=== PATIENT | female | born 1995 | race Caucasian/White ===

== ENCOUNTER 2023-11-05 15:51 | Emergency (ER) | payer MEDICAID ==
[~2023-11-05] VITALS: Ht 170.2 cm; Wt 99.8 kg
[2023-11-05 16:20] VITALS: BP 145/97; PULSE 100; RESP 22; TEMP 98.3; O2SAT 99
[2023-11-05] MEDS: NACL 0.9% 1,000 ML IV ONE ×2 (16:30→18:53)
[2023-11-05 16:57] LABS: BASOPHILS # (AUTO) 0.1 K/uL (0.00-0.22); BASOPHILS % (AUTO) 1.3 % (0.0-2.0); EOSINOPHILS % (AUTO) 0.5 % (0.0-4.0); HEMATOCRIT 42.4 % (36-48); HEMOGLOBIN 14.9 g/dL (12.0-16.0); LYMPHOCYTES # (AUTO) 1.8 K/uL (2.5-16.5); LYMPHOCYTES % (AUTO) 26.3 % (20.5-51.1); MEAN CORPUSCULAR HEMOGLOBIN 32 pg (27-31); MEAN CORPUSCULAR HGB CONC 35 g/dL (33-37); MONOCYTES # (AUTO) 0.4 K/uL (0.8-1.0); MONOCYTES % (AUTO) 5.5 % (1.7-9.3); NEUTROPHILS # (AUTO) 4.5 K/uL (1.8-7.7); NEUTROPHILS % (AUTO) 66.4 % (42.2-75.2); PLATELET COUNT (AUTO) 345 K/uL (140-450); RED BLOOD CELL COUNT(AUTO) 4.71 MIL/uL (4.20-5.40); RED CELL DISTRIBUTION WIDTH 14.6 % (11.6-13.7); WHITE BLOOD COUNT (AUTO) 6.8 K/uL (4.8-10.8)
[2023-11-05 17:10] LABS: APPEARANCE,URINE CLEAR (CLEAR); BILIRUBIN,URINE NEGATIVE (NEGATIVE); BLOOD, URINE NEGATIVE (NEGATIVE); COLOR,URINE YELLOW (YELLOW); LEUKOCYTE ESTERASE ,URINE NEGATIVE (NEGATIVE); NITRITE, URINE NEGATIVE (NEGATIVE); PROTEIN,URINE NEGATIVE (NEGATIVE); UGLUCOSE NEGATIVE (NEGATIVE); UROBILINOGEN,URINE 0.2 EU/dL (0.2 - 1)
[2023-11-05 17:12] LABS: ANION GAP 18.8 (8-16); CALCIUM 8.9 mg/dL (8.5-10.1); CARBON DIOXIDE 21.5 mmol/L (21-32); CREATININE 0.9 mg/dL (0.6-1.3); POTASSIUM 3.3 mmol/L (3.5-5.1)
[2023-11-05 17:17] LABS: INR 1.01 (0.8-1.2); PARTIAL THROMBOPLASTIN TIME 25.9 secs (22-35.6); PROTHROMBIN TIME 10.6 secs (10.8-13.4)
[2023-11-05] MEDS: LORazepam 2 MG/ML VIAL IVP ONE (17:18)
[2023-11-05 17:21] LABS: ALANINE AMINOTRANSFERASE 41 U/L (12-78); ALKALINE PHOSPHATASE 85 U/L (50-136); ASPARTATE AMINOTRANSFERASE 24 U/L (15-37); BILIRUBIN,DIRECT 0.1 mg/dL (0.0-0.3); TOTAL BILIRUBIN 0.5 mg/dL (0.0-1.0)
[2023-11-05 18:02] LABS: AMPHETAMINE, URINE NEGATIVE ng/ml (NEG <=1000); BARBITURATE, URINE NEGATIVE ng/ml (NEG <=200); BENZODIAZEPINE, URINE NEGATIVE ng/mL (NEG <=200); COCAINE, URINE NEGATIVE ng/mL (NEG <=300)
[2023-11-05 18:03] LABS: CANNABINOID, URINE NEGATIVE ng/mL (NEG <=50); OPIATE, URINE NEGATIVE ng/mL (NEG <=2000); PHENCYCLIDINE SCREEN,URINE NEGATIVE ng/mL (NEG <=25)
[2023-11-05 19:34] VITALS: BP 128/90; PULSE 100; RESP 20; TEMP 98.3; O2SAT 97
== END 2023-11-05 19:33 | disposition home or self-care (01) ==
LOC: MED 15:51
DX: F41.9 Anxiety disorder, unspecified (principal); R00.2 Palpitations; R53.1 Weakness
CPT/HCPCS: 36415; 71045; 80048; 80076; 80305; 81003; 81025; 83880; 84439; 84443; 84484; 85025; 85379; 85610; 85730; 93005; 96361; 96374; 99285; J2060; J7030

== ENCOUNTER 2023-11-12 03:10 | Emergency (ER) | payer MEDICAID ==
[~2023-11-12] VITALS: Ht 170.2 cm; Wt 100.7 kg
[2023-11-12 03:13] VITALS: BP 116/84; PULSE 110; RESP 16; TEMP 97.2; O2SAT 99
[2023-11-12] MEDS: HYDROXYZINE HYDROCHLORIDE 25 MG TAB PO ONE (03:54)
[2023-11-12] MEDS: NACL 0.9% 1,000 ML IV ONE ×2 (03:54→06:08)
[2023-11-12 04:06] LABS: BASOPHILS # (AUTO) 0.1 K/uL (0.00-0.22); BASOPHILS % (AUTO) 2.3 % (0.0-2.0); EOSINOPHILS % (AUTO) 0.4 % (0.0-4.0); HEMATOCRIT 41.7 % (36-48); HEMOGLOBIN 14.4 g/dL (12.0-16.0); LYMPHOCYTES # (AUTO) 2.4 K/uL (2.5-16.5); LYMPHOCYTES % (AUTO) 36.5 % (20.5-51.1); MEAN CORPUSCULAR HEMOGLOBIN 31 pg (27-31); MEAN CORPUSCULAR HGB CONC 35 g/dL (33-37); MEAN CORPUSCULAR VOLUME 90.3 fL (80-94); MONOCYTES # (AUTO) 0.3 K/uL (0.8-1.0); MONOCYTES % (AUTO) 4.3 % (1.7-9.3); NEUTROPHILS # (AUTO) 3.6 K/uL (1.8-7.7); NEUTROPHILS % (AUTO) 56.5 % (42.2-75.2); PLATELET COUNT (AUTO) 323 K/uL (140-450); RED BLOOD CELL COUNT(AUTO) 4.62 MIL/uL (4.20-5.40); RED CELL DISTRIBUTION WIDTH 14.9 % (11.6-13.7); WHITE BLOOD COUNT (AUTO) 6.4 K/uL (4.8-10.8)
[2023-11-12 04:20] LABS: ANION GAP 15.7 (8-16); CALCIUM 8.4 mg/dL (8.5-10.1); CARBON DIOXIDE 23.7 mmol/L (21-32); CREATININE 0.7 mg/dL (0.6-1.3); POTASSIUM 3.4 mmol/L (3.5-5.1)
[2023-11-12] MEDS: ONDANSETRON 4 MG/2 ML VIAL IVP ONE ×2 (04:42→06:08)
[2023-11-12] MEDS: LORazepam 2 MG/ML VIAL IVP ONE (04:43)
[2023-11-12 06:31] VITALS: BP 132/86; RESP 14; TEMP 98; O2SAT 99
[2023-11-12] MEDS: LORazepam 1 MG TAB PO ONE (07:35)
[2023-11-12 07:45] LABS: ALBUMIN 3.6 g/dL (3.4-5.0); ANION GAP 14.9 (8-16); CALCIUM 7.6 mg/dL (8.5-10.1); CARBON DIOXIDE 24.6 mmol/L (21-32); CREATININE 0.7 mg/dL (0.6-1.3); POTASSIUM 3.5 mmol/L (3.5-5.1); TOTAL BILIRUBIN 0.3 mg/dL (0.0-1.0)
[2023-11-12] MEDS ORDERED: ONDA-188 SL (07:49)
[2023-11-12] MEDS ORDERED: ATA25 PO (07:49)
[2023-11-12 08:15] VITALS: PULSE 100
== END 2023-11-12 08:15 | disposition home or self-care (01) ==
LOC: MED 03:10
DX: R00.2 Palpitations (principal); F41.9 Anxiety disorder, unspecified; R11.10 Vomiting, unspecified; Z88.6 Allergy status to analgesic agent
CPT/HCPCS: 36415; 80048; 80053; 81025; 83690; 83735; 85025; 93005; 96361; 96374; 96375; 96376; 99284; J2060; J2405; J7030

== ENCOUNTER 2023-12-04 15:52 | Emergency (ER) | payer MEDICAID ==
[~2023-12-04] VITALS: Ht 170.2 cm; Wt 98.4 kg
[~2023-12-04 15:52] MED LIST: ATA25 PO; ONDA-188 SL
[2023-12-04 16:03] VITALS: BP 143/94; PULSE 112; RESP 18; TEMP 97.5; O2SAT 97
[2023-12-04] MEDS: LORazepam 2 MG/ML VIAL IVP ONE (16:40)
[2023-12-04] MEDS: METOCLOPRAMIDE 10 MG/2 ML INJ VIAL IVP ONE (16:43)
[2023-12-04] MEDS: NACL 0.9% 1,000 ML IV ONE (16:47)
[2023-12-04 17:07] LABS: BASOPHILS % (AUTO) 0.5 % (0.0-2.0); EOSINOPHILS % (AUTO) 0.5 % (0.0-4.0); HEMATOCRIT 41.6 % (36-48); HEMOGLOBIN 14.1 g/dL (12.0-16.0); LYMPHOCYTES # (AUTO) 1.9 K/uL (2.5-16.5); LYMPHOCYTES % (AUTO) 26.1 % (20.5-51.1); MEAN CORPUSCULAR HEMOGLOBIN 31 pg (27-31); MEAN CORPUSCULAR HGB CONC 34 g/dL (33-37); MEAN CORPUSCULAR VOLUME 91.2 fL (80-94); MONOCYTES # (AUTO) 0.3 K/uL (0.8-1.0); MONOCYTES % (AUTO) 3.4 % (1.7-9.3); NEUTROPHILS # (AUTO) 5.2 K/uL (1.8-7.7); NEUTROPHILS % (AUTO) 69.5 % (42.2-75.2); PLATELET COUNT (AUTO) 353 K/uL (140-450); RED BLOOD CELL COUNT(AUTO) 4.56 MIL/uL (4.20-5.40); RED CELL DISTRIBUTION WIDTH 14.5 % (11.6-13.7); WHITE BLOOD COUNT (AUTO) 7.5 K/uL (4.8-10.8)
[2023-12-04 17:19] LABS: CALCIUM 8.3 mg/dL (8.5-10.1); CARBON DIOXIDE 22.2 mmol/L (21-32); CREATININE 0.7 mg/dL (0.6-1.3); POTASSIUM 3.2 mmol/L (3.5-5.1)
[2023-12-04 17:24] LABS: ALBUMIN 4.1 g/dL (3.4-5.0); BILIRUBIN,DIRECT 0.1 mg/dL (0.0-0.3); TOTAL BILIRUBIN 0.4 mg/dL (0.0-1.0); TOTAL PROTEIN, SERUM 8.2 g/dL (6.4-8.2)
[2023-12-04 18:31] LABS: APPEARANCE,URINE CLEAR (CLEAR); BILIRUBIN,URINE NEGATIVE (NEGATIVE); BLOOD, URINE 2+ (NEGATIVE); COLOR,URINE YELLOW (YELLOW); LEUKOCYTE ESTERASE ,URINE TRACE (NEGATIVE); NITRITE, URINE NEGATIVE (NEGATIVE); PH,URINE 7.5 (5.0-9.0); PROTEIN,URINE 2+ (NEGATIVE); UGLUCOSE NEGATIVE (NEGATIVE); UROBILINOGEN,URINE 0.2 EU/dL (0.2 - 1)
[2023-12-04 18:43] LABS: BACTERIA,URINE FEW /HPF (None Seen); MUCUS,URINE None Seen /LPF (None Seen); SQUAMOUS EPITHELIAL CELL,UR 4-10 (MOD) /LPF (0-3 (FEW)); WBC,URINE 0-5 /HPF (0-5)
[2023-12-04 18:44] LABS: TRICHOMONAS,URINE None Seen /HPF (None Seen); WHITE BLOOD CELL CASTS,URINE None Seen /LPF (None Seen); YEAST,URINE None Seen /HPF (None Seen)
[2023-12-04 19:27] VITALS: BP 127/78; PULSE 97; RESP 12; TEMP 98; O2SAT 98
[2023-12-04] MEDS ORDERED: ATI.5 PO (19:27)
== END 2023-12-04 19:40 | disposition home or self-care (01) ==
LOC: MED 15:52
DX: O00.80 Other ectopic pregnancy without intrauterine pregnancy (principal); F41.9 Anxiety disorder, unspecified; R00.0 Tachycardia, unspecified; Z3A.01 Less than 8 weeks gestation of pregnancy; Z79.899 Other long term (current) drug therapy; Z88.5 Allergy status to narcotic agent
CPT/HCPCS: 36415; 76817; 80048; 80076; 81001; 81025; 83690; 84702; 85025; 93005; 96361; 96374; 96375; 99285; J2060; J2765; J7030; Q0092

== ENCOUNTER 2024-02-20 21:23 | Emergency (ER) | payer MEDICAID ==
[~2024-02-20] VITALS: Ht 170.2 cm; Wt 101.2 kg
[~2024-02-20 21:23] MED LIST changes: +ATI.5 PO
[2024-02-20 21:25] VITALS: BP 134/108; PULSE 107; RESP 18; TEMP 98.7; O2SAT 100
[2024-02-20] MEDS: LORazepam 1 MG TAB PO ONE (22:24)
[2024-02-20 23:04] VITALS: BP 121/86; PULSE 98; RESP 18; TEMP 98; O2SAT 98
== END 2024-02-20 23:04 | disposition home or self-care (01) ==
LOC: MED 21:23
DX: F41.0 Panic disorder [episodic paroxysmal anxiety] (principal); F32.9 Major depressive disorder, single episode, unspecified; F84.5 Asperger's syndrome; Z98.890 Other specified postprocedural states; Z79.899 Other long term (current) drug therapy; Z88.5 Allergy status to narcotic agent
CPT/HCPCS: 93005; 99283